=== PATIENT | female | born 1970 | race African-American/Black ===

== ENCOUNTER → 2017-04-08 | Outpatient (CLI) | payer BC ==
--- NOTE | 2017-04-08 18:48 | KCIC ---
Bilateral digital screening mammograms: Reason for examination: Routine screening. Comparison is made to previous studies dated 12/18/2015, 10/28/2011 and 08/23/2010. The skin and nipples show no abnormalities. No abnormal axillary lymph nodes are seen. The breast parenchyma is extremely dense. (Breast density: Category D) There are no dominant masses, suspicious calcifications or architectural distortion. Scattered benign calcifications are again seen. Impression: No evidence of malignancy. Recommend routine screening. Your patient's mammogram demonstrates that she has dense breast tissue (breast density category C or D), which could hide abnormalities, and if she has other risk factors for breast cancer that have been identified, she might benefit from supplemental screening tests that may be suggested by you as her ordering physician. Dense breast tissue, in and of itself, is a relatively common condition. Therefore, this information is not provided to cause undue concern, but rather to raise your awareness and to promote discussion with your patient regarding the presence of other risk factors, in addition to dense breast tissue. Your patient's mammography results will be sent to her. BI-RADS Category 2: Benign. "Our facility is accredited by the [employer] Mammography [employer]." This patient's information has been entered into a reminder system for the patient to be notified with the results of her examination and a target date for the next mammogram. Electronically signed by: Brigida Sanchez MD (04/08/2017 6:44 PM)
== END | disposition home or self-care (01) ==
LOC: KCIC MAMMO 16:02
PROVIDERS: ATTEND Obstetrics & Gynecology
DX: Z12.31 Encounter for screening mammogram for malignant neoplasm of breast (principal)
CPT/HCPCS: G0202; 77067

== ENCOUNTER → 2019-05-24 | Outpatient (CLI) | payer BC ==
--- NOTE | 2019-05-25 11:07 | KCIC ---
Bilateral digital screening mammograms with 3-D tomosynthesis: Reason for examination: Routine screening. Comparison is made to previous studies dated 04/08/2017 and 12/18/2015. Bilateral mammograms in CC and oblique projections were obtained with 2-D imaging and 3-D tomosynthesis imaging on a Siemens Inspiration unit and reviewed on the workstation. Interpretation was made with the benefit of CAD. The skin and nipples show no abnormalities. No abnormal axillary lymph nodes are seen. The breast parenchyma is extremely dense. (Breast density: Category D.) There appears to be a nodular density posterior and inferiorly in the left breast probably at approximately the 6:00 C position and appearing to measure approximately 1.9 cm size. This may represent a cyst or fibroadenoma but recommend further evaluation with ultrasound. There are no other Dominant masses, suspicious calcifications or architectural distortion. Benign appearing calcifications are seen bilaterally. Impression: 1.9 cm nodular density posterior and inferiorly in the left breast on oblique view probably at the 6:00 C position. Recommend further evaluation with ultrasound. BI-RADS Category 0: Incomplete: Need additional imaging evaluation. "Our facility is accredited by the [employer] Mammography [employer]." Your patient's mammogram demonstrates that she has dense breast tissue (breast density category C or D), which could hide abnormalities, and if she has other risk factors for breast cancer that have been identified, she might benefit from supplemental screening tests that may be suggested by you as her ordering physician. Dense breast tissue, in and of itself, is a relatively common condition. Therefore, this information is not provided to cause undue concern, but rather to raise your awareness and to promote discussion with your patient regarding the presence of other risk factors, in addition to dense breast tissue. Your patient's mammography results will be sent to her. This patient's information has been entered into a reminder system for the patient to be notified with the results of her examination and a target date for the next mammogram. Electronically signed by: Brigida Sanchez MD (05/25/2019 11:04 AM) [id number]
== END | disposition home or self-care (01) ==
LOC: KCIC MAMMO 09:07
PROVIDERS: ATTEND Family Medicine
DX: Z12.31 Encounter for screening mammogram for malignant neoplasm of breast (principal); N64.89 Other specified disorders of breast
CPT/HCPCS: 77063; 77067

== ENCOUNTER → 2019-06-08 | Outpatient (CLI) | payer BC ==
--- NOTE | 2019-06-08 11:35 | KCIC ---
Left breast ultrasound: Reason for examination: Nodular density on screening mammogram. Comparison is made to mammographic exam dated 05/24/2019. Left whole breast ultrasound including evaluation of all 4 quadrants and the retroareolar and axillary regions of the left breast was performed. In the 9:00 position 5 cm from the nipple, there is a small 6.5 mm hypoechoic lesion with a fibroadenoma and is/fibrocystic appearance. In the 9:30 position 4 cm from the nipple, there is a 1.7 cm hypoechoic lesion. This shows an ill-defined margin anteriorly. This would appear to correspond with the area of mammographic concern. Further evaluation with ultrasound-guided biopsy is recommended. No other cystic or solid nodules are seen. No abnormal appearing lymph nodes are seen in the axilla. IMPRESSION: 1.7 cm nodule at the 9:30 position 4 cm from the nipple with an ill-defined anterior margin. Further evaluation with ultrasound biopsy is recommended. BI-RADS Category 4: Suspicious. These findings have been discussed with the patient and the patient's physician, Radha Alcantara, was notified about these findings at 11:32 AM on 06/08/2019. "Our facility is accredited by the [employer] Mammography [employer]." This patient's information has been entered into a reminder system for the patient to be notified with the results of her examination and a target date for the next mammogram. Electronically signed by: Brigida Sanchez MD (06/08/2019 11:33 AM) [id number]
== END | disposition home or self-care (01) ==
LOC: KCIC US 09:04
PROVIDERS: ATTEND Family Medicine
DX: N63.22 Unspecified lump in the left breast, upper inner quadrant (principal)
CPT/HCPCS: 76641